=== PATIENT | male | born 1985 | race Caucasian/White ===

== ENCOUNTER 2016-12-08 12:04 | Emergency (ER) | payer SELFPAY ==
[~2016-12-08] VITALS: Ht 182.9 cm; Wt 75.0 kg
[2016-12-08 14:20] LABS: HEMATOCRIT 36.9 % (38.0-50.0); MCH 30.7 PG (29.0-34.0); MCHC 34.4 G/DL (30.0-36.0); MCV 89.1 FL (86-99); MEAN PLAT.VOLUME 8.9 uM^3 (9.0-12.4); PLATELET COUNT 224 K/uL (156-360); RBC DIS.WIDTH-CV 11.9 % (11.8-14.6); RBC DIS.WIDTH-SD 38.9 % (39-53); RED BLOOD COUNT 4.14 M/uL (4.00-5.50); WHITE BLOOD COUNT 13.6 K/uL (4.1-10.2)
[2016-12-08 14:30] LABS: CHLORIDE 105 mEq/L (99-109); POTASSIUM 3.5 mEq/L (3.7-5.4); SODIUM 137 mEq/L (136-147)
[2016-12-08 14:32] LABS: GLUCOSE 113 mg/dL (70-99)
[2016-12-08 14:33] LABS: ANION GAP 6 MEQ/L (2-14)
[2016-12-08 14:35] LABS: GFR ESTIMATE (CALCULATED) > 59 mL/min/
[2016-12-08 14:36] LABS: UREA NITROGEN (BUN) 7 mg/dL (9-23)
[2016-12-08] MEDS ORDERED: PERCOCET 5/31 TABLET PO (15:42)
[2016-12-08 15:58] VITALS: BP 136/91
[2016-12-09] MEDS ORDERED: PERCOCET 5/31 TABLET PO (12:45)
== END 2016-12-08 15:59 | disposition left against medical advice (07) ==
LOC: EME 12:04
PROVIDERS: Nurse Practitioner Family
DX: S92.001A Unspecified fracture of right calcaneus, initial encounter for closed fracture (principal); S92.002A Unspecified fracture of left calcaneus, initial encounter for closed fracture; S32.020A Wedge compression fracture of second lumbar vertebra, initial encounter for closed fracture; W17.89XA Other fall from one level to another, initial encounter; Y92.812 Truck as the place of occurrence of the external cause; F17.200 Nicotine dependence, unspecified, uncomplicated
CPT/HCPCS: 72131; 73610; 73630; 80048; 85027; 86850; 86900; 86901

== ENCOUNTER 2016-12-09 08:40 | Emergency (ER) | payer SELFPAY ==
[~2016-12-09] VITALS: Ht 182.9 cm; Wt 72.7 kg
[~2016-12-09 08:40] MED LIST: PERCOCET 5/31 TABLET PO
[2016-12-09] MEDS ORDERED: PERCOCET 5/31 TABLET PO (12:45)
[2016-12-09 13:01] VITALS: BP 98/79
== END 2016-12-09 13:02 | disposition home or self-care (01) ==
LOC: EME 08:40
DX: S92.021A Displaced fracture of anterior process of right calcaneus, initial encounter for closed fracture (principal); S92.251A Displaced fracture of navicular [scaphoid] of right foot, initial encounter for closed fracture; S92.012A Displaced fracture of body of left calcaneus, initial encounter for closed fracture; S92.022A Displaced fracture of anterior process of left calcaneus, initial encounter for closed fracture; S32.039A Unspecified fracture of third lumbar vertebra, initial encounter for closed fracture; V89.9XXA Person injured in unspecified vehicle accident, initial encounter; F17.200 Nicotine dependence, unspecified, uncomplicated
CPT/HCPCS: 73700; 99281; 99283